=== PATIENT | male | born 1990 | race Caucasian/White ===

== ENCOUNTER 2017-11-18 20:35 | Emergency (ER) | payer SELFPAY ==
[2017-11-18 20:56] VITALS: BP 136/83; PULSE 115; RESP 20; TEMP 99; O2SAT 99
--- NOTE | 2017-11-18 21:18 | C.PDOC ---
History Of Present Illness 27 year old male presents to the ED c/o insomnia, floating anxiety and occasional palpitations for the past 3 weeks. Patient states he recently graduated with a degree in August and is having trouble finding a job. Patient reports he tried chamomile tea and melatonin and is worried this might be causing him problems. Patient denies Si/HI, hallucinations, CP, SOB, weakness, numbness. Time Seen by Provider: 11/18/17 21:07 Chief Complaint (Nursing): Anxiety History Per: Patient History/Exam Limitations: no limitations Onset/Duration Of Symptoms: Days Current Symptoms Are (Timing): Still Present Suicide/Self Injury Attempted (Context): None Modifying Factor(s): None Associated Symptoms: Anxiety. denies: Depression, Suicidal Thoughts, Suicidal Plan Recent travel outside of the [place]: No Additional History Per: Patient Past Medical History Reviewed: Historical Data, Nursing Documentation, Vital Signs Vital Signs: Last Vital Signs Temp 99 F 11/18/17 20:53 Pulse 115 H 11/18/17 20:53 Resp 20 11/18/17 20:53 BP 136/83 11/18/17 20:53 Pulse Ox 99 11/18/17 21:18 - Medical History PMH: No Chronic Diseases Surgical History: No Surg Hx Family History: States: Unknown Family Hx - Social History Hx Alcohol Use: Yes Hx Substance Use: No - Immunization History Hx Tetanus Toxoid Vaccination: No Hx Influenza Vaccination: No Hx Pneumococcal Vaccination: No Review Of Systems Constitutional: Negative for: Fever, Chills Cardiovascular: Positive for: Palpitations. Negative for: Chest Pain Respiratory: Negative for: Cough, Shortness of Breath Gastrointestinal: Negative for: Nausea, Vomiting, Abdominal Pain Skin: Negative for: Rash Neurological: Negative for: Weakness, Numbness Psych: Positive for: Anxiety Physical Exam - Physical Exam Appears: Non-toxic, Other (anxious) Skin: Normal Color, Warm, Dry Head: Atraumatic, Normacephalic Eye(s): bilateral: Normal Inspection Neck: Normal ROM, Supple Chest: Symmetrical Cardiovascular: Rhythm Regular Respiratory: Normal Breath Sounds, No Rales, No Rhonchi, No Wheezing Gastrointestinal/Abdominal: Soft, No Tenderness, No Guarding, No Rebound Extremity: Normal ROM, No Tenderness, No Swelling Neurological/Psych: Oriented x3, Normal Speech Gait: Steady ED Course And Treatment ECG: Interpreted By Me, Viewed By Me ECG Rhythm: Sinus Rhythm Rate From EC (BPM) O2 Sat by Pulse Oximetry: 99 (ON RA) Pulse Ox Interpretation: Normal Medical Decision Making Medical Decision Making: anxiety and poor sleep anxiety about job search [employer] August 2017 Disposition Doctor Will See Patient In The: Office Counseled Patient/Family Regarding: Studies Performed, Diagnosis - Disposition Referrals: [facility] [Outside] [place] [facility] [Outside] [facility] [Outside] [place] [employer] [Outside] Disposition: HOME/ ROUTINE Disposition Time: 21:18 Condition: GOOD Additional Instructions: Bendryl 25-50 mg @ night to help with sleep Camomile tea OTC sleep aids Exercise daily Avoid caffeine Follow-up in our outpatient Clinic or psych resources as needed EKG and physical exam normal today Instructions: Anxiety, Adult (DC), Insomnia (DC) Forms: [employer] (Armenian) - Clinical Impression Clinical Impression: Anxiety, Insomnia - Scribe Statement The provider has reviewed the documentation as recorded by the Scribe Syed Hawthorne All medical record entries made by the Scribe were at my direction and personally dictated by me. I have reviewed the chart and agree that the record accurately reflects my personal performance of the history, physical exam, medical decision making, and the department course for this patient. I have also personally directed, reviewed, and agree with the discharge instructions and disposition.
--- NOTE | 2017-11-21 08:07 | CARD ---
APPROVED REPORT Date of service: 11/18/2017 EKG Measurement Heart [id number] <Conclusion> Normal sinus rhythm with sinus arrhythmia Normal ECG
== END 2017-11-18 21:47 | disposition home or self-care (01) ==
LOC: C.ER 20:35
DX: F41.9 Anxiety disorder, unspecified (principal); G47.00 Insomnia, unspecified

== ENCOUNTER 2018-02-13 21:40 | Emergency (ER) | payer OTHER ==
[2018-02-13 21:53] VITALS: BP 118/81; PULSE 95; RESP 20; TEMP 97.9; O2SAT 100
--- NOTE | 2018-02-13 22:37 | C.PDOC ---
History Of Present Illness 27 year old male presents to the ER with a complaint of lower back pain intermittent for the past few days. Patient states when he sits he feels like "his back is not supporting his body". Patient reports increasing pain with ambulation, today he felt like all his joints were hurting. He did not take anything for the pain. Contrary to triage patient denies weakness as well as trauma, URI symptoms, UTI symptoms, incontinence, fever, numbness, or recent travel. Time Seen by Provider: 02/13/18 22:01 Chief Complaint (Nursing): Weakness/Neurological Deficit History Per: Patient History/Exam Limitations: no limitations Onset/Duration Of Symptoms: Days, Intermittent Episodes Current Symptoms Are (Timing): Still Present Seizure Or Post-ictal Symptoms: None Fall Associated With With Symptoms: No Recent travel outside of the [place]: No Past Medical History Reviewed: Historical Data, Nursing Documentation, Vital Signs Vital Signs: Last Vital Signs Temp 97.9 F 02/13/18 21:46 Pulse 95 H 02/13/18 21:46 Resp 20 02/13/18 21:46 BP 118/81 02/13/18 21:46 Pulse Ox 100 02/13/18 21:46 Family History: States: Unknown Family Hx - Social History Hx Alcohol Use: Yes Hx Substance Use: No - Immunization History Hx Tetanus Toxoid Vaccination: Yes Hx Influenza Vaccination: No Hx Pneumococcal Vaccination: No Review Of Systems Constitutional: Negative for: Fever, Chills Genitourinary: Negative for: Dysuria, Incontinence, Hematuria Musculoskeletal: Positive for: Back Pain, Other (Joint pain) Neurological: Negative for: Weakness, Numbness Physical Exam - Physical Exam Appears: Non-toxic Skin: Normal Color, Warm, Dry Head: Atraumatic, Normacephalic Eye(s): bilateral: Normal Inspection Back: No CVA Tenderness, No Vertebral Tenderness, No Paraspinal Tenderness Extremity: Normal ROM (x4), No Tenderness, No Deformity, No Swelling Neurological/Psych: Oriented x3, Normal Speech, Normal Motor, Normal Sensation Gait: Steady ED Course And Treatment O2 Sat by Pulse Oximetry: 100 (Room air) Pulse Ox Interpretation: Normal Progress Note: Flexeril and motrin administered. Patient reports improvement of pain, he is resting comfortably in the ER in no acute distress, ambulatory with a steady gait, vitals are stable, will discharge home with Rx, instructed to follow up with PMD or return if symptoms worsen. 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 - Scribe Statement The provider has reviewed the documentation as recorded by the Scribjose Parsnos All medical record entries made by the Anisaibjose were at my direction and personally dictated by me. I have reviewed the chart and agree that the record accurately reflects my personal performance of the history, physical exam, medical decision making, and the department course for this patient. I have also personally directed, reviewed, and agree with the discharge instructions and disposition.
== END 2018-02-13 22:45 | disposition home or self-care (01) ==
LOC: C.ER 21:40
DX: M54.5 Low back pain (principal); M79.10 Myalgia, unspecified site